=== PATIENT | female | born 1975 | race Caucasian/White ===

== ENCOUNTER 2017-05-13 16:07 | Emergency (ER) | payer MEDICAID, MEDICARE ==
[~2017-05-13 16:07] MED LIST: HYDR-3533 PO; IBUP-238 PO; IBUP800T23 PO; ROBA750T3 PO
[2017-05-13 16:08] VITALS: BP 189/98; PULSE 100; RESP 24; TEMP 98.7; O2SAT 96
== END 2017-05-13 16:49 | disposition left against medical advice (07) ==
LOC: NED 16:07
DX: Z04.3 Encounter for examination and observation following other accident (principal)
CPT/HCPCS: 99281